=== PATIENT | male | born 1990 | race Caucasian/White ===

== ENCOUNTER 2018-09-18 11:59 | Emergency (ER) | payer OTHER ==
[2018-09-18 12:31] VITALS: BP 107/72
--- NOTE | 2018-09-18 12:42 | UC ---
Respiratory Complaint HPI - HPI Summary HPI Summary: Pt is 28 y/o male with hx of asthma with wheezing beginning yesterday. States he is visiting from out of town and forgot his albuterol inhaler and he is requesting a refill. Notes intermittent cough, consistent with his allergies and asthma. Denies shortness of breath, chest pain, respiratory distress, fevers , and chills. - History of Current Complaint Chief Complaint: UCRespiratory Stated Complaint: MED REFILL Time Seen by Provider: 09/18/18 12:33 Hx Obtained From: Patient Onset/Duration: Sudden Onset Timing: Intermittent Episodes Severity Initially: Mild Severity Currently: Mild Pain Intensity: 2 Pain Scale Used: 0-10 Numeric Character: Cough: Nonproductive Aggravating Factors: Allergens Alleviating Factors: Bronchodilator Associated Signs And Symptoms: Positive: Wheezing. Negative: Dyspnea, Fever, Chills, Nasal Congestion - Allergies/Home Medications Allergies/Adverse Reactions: Allergies Allergy/AdvReac Type Severity Reaction Status Date / Time ENVIRONMENTAL Allergy Severe CHEST Uncoded 09/18/18 12:29 CONGESTION/RESP PROBLEMS Home Medications: Home Medications Loratadine [Claritin] 10 mg PO DAILY 09/18/18 [History Confirmed 09/18/18] PMH/Surg Hx/FS Hx/Imm Hx Previously Healthy: No Respiratory History: Asthma - Surgical History Surgical History: None - Family History Known Family History: Positive: Non-Contributory - Social History Alcohol Use: Occasionally Substance Use Type: None Smoking Status (MU): Never Smoked Tobacco Review of Systems All Other Systems Reviewed And Are Negative: Yes Constitutional: Negative: Fever, Chills Respiratory: Positive: Cough, Other - Wheezing. Negative: Shortness Of Breath Cardiovascular: Negative: Chest Pain Physical Exam Triage Information Reviewed: Yes Appearance: Well-Appearing, No Pain Distress Vital Signs: Initial Vital Signs Temp 97.8 F 09/18/18 12:25 Pulse 76 09/18/18 12:25 Resp 16 09/18/18 12:25 BP 107/72 09/18/18 12:25 Pulse Ox 98 09/18/18 12:25 Vital Signs Reviewed: Yes Eye Exam: Normal Eyes: Positive: Conjunctiva Clear ENT Exam: Normal ENT: Positive: Normal ENT inspection Dental Exam: Normal Respiratory: Positive: Lungs clear, No respiratory distress. Negative: Wheezing Cardiovascular: Positive: RRR, No Murmur Abdomen Description: Negative: Distended Musculoskeletal Exam: Normal Musculoskeletal: Positive: Strength Intact, ROM Intact Neurological Exam: Normal Neurological: Positive: Alert Psychological Exam: Normal Skin Exam: Normal Respiratory Course/Dx - Course Course Of Treatment: 28 y/o male with hx of asthma requesting refill of albuterol inhaler d/t worsening seasonal allergies and wheezing beginning last night. No wheezing or respiratory distress with normal O2 saturation. Pt discharged with refill for albuterol inhaler. Patient was seen in collaboration with the physician surgical supply assistant student. - Differential Dx/Diagnosis Differential Diagnosis/HQI/PQRI: Asthma Provider Diagnosis: Medication refill, Intermittent asthma Discharge - Sign-Out/Discharge Documenting (check all that apply): Patient Departure All imaging exams completed and their final reports reviewed: No Studies - Discharge Plan Condition: Improved Disposition: HOME Prescriptions: Albuterol HFA INHALER* [Ventolin HFA Inhaler*] 2 puff INH Q4H PRN #1 mdi PRN Reason: ALLERGIES Patient Education Materials: Medicine Refill (ED) Referrals: No Primary Care Phys,NOPCP [Primary Care Provider] - Additional Instructions: Return if worse, new symptoms or other concerns as discussed. - Billing Disposition and Condition Condition: IMPROVED Disposition: Home - Attestation Statements Document Initiated by Scribe: Yes Documenting Scribe: FORD Purdy Provider For Whom Jose Manuel is Documenting (Include Credential): Dr. Mike Woods [employer] Attestation: Lilliam Babin PA-S, scribed for Dr. Mike Woods on 09/18/18 at 1342. Scribe Documentation Reviewed: Yes Provider Attestation: The documentation as recorded by the Lilliam coffey PA-S accurately reflects the service I personally performed and the decisions made by Dr. Mike dawson Status of Scribe Document: Viewed
== END 2018-09-18 12:55 | disposition home or self-care (01) ==
LOC: UCEAST 11:59
DX: J45.20 Mild intermittent asthma, uncomplicated (principal); Z76.0 Encounter for issue of repeat prescription
CPT/HCPCS: 99202; G0463